=== PATIENT | male | born 1975 | race Caucasian/White ===

== ENCOUNTER → 2018-08-30 | Outpatient (CLI) | payer OTHER | END | disposition home or self-care (01) | LOC: SONOGRAMA 07:43 | DX: R10.9 Unspecified abdominal pain (principal) ==

== ENCOUNTER 2018-09-11 16:12 | Outpatient (CLI) | payer OTHER | END 2018-09-11 16:17 | disposition home or self-care (01) | LOC: LAB 16:12 | DX: R94.4 Abnormal results of kidney function studies (principal); Z51.81 Encounter for therapeutic drug level monitoring ==

== ENCOUNTER → 2018-09-13 | Outpatient (CLI) | payer OTHER | END | disposition home or self-care (01) | LOC: TOM 08:15 | DX: R10.9 Unspecified abdominal pain (principal) ==

== ENCOUNTER 2019-10-30 11:01 | Outpatient (CLI) | payer OTHER | END 2019-10-30 11:18 | disposition home or self-care (01) | LOC: RAD 11:01 | DX: M25.562 Pain in left knee (principal); M25.572 Pain in left ankle and joints of left foot; S93.402A Sprain of unspecified ligament of left ankle, initial encounter ==